=== PATIENT | female | born 1945 | race Caucasian/White ===

== ENCOUNTER 2024-06-30 13:53 | Outpatient (AMB) | payer MEDICARE, SELFPAY ==
--- NOTE | 2024-06-30 14:28 | A.SPINEOV_ITS ---
Vital Signs 06/30/24 14:29 Height 5 ft 5 in Weight 195 lb BMI 32.4 Intake Visit Reasons: low back pain Intake Note: Mrs. Williamson is here today c/o low back pain. 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 She tells me that about a year and a half ago she was working in her garden and as she was walking through it she tripped on 1 of the rocks and fell down. She was able to get up and continue on with her activity, but noticed shortly afterward that she started to develop some aching in her left buttock and her left anterior groin with activity. It would extend down her leg a little bit but primarily it was in her left buttock and her left anterior groin. The pain is aggravated with standing and walking and gets better if she sits down but does not completely go away. She tried to put up with it the best she could, doing things like ice, heat, changing positions. She even underwent 6 weeks of physical therapy where they did work on her hip with exercises using bands and strengthening of her glutes and quads but this did not help at all. She underwent an x-ray just showing some mild arthritis. She ultimately underwent an MRI of the lumbar spine showing spondylolisthesis at L4-5 with retrolisthesis at L3-4. I was seeing her for a separate issue and while we were discussing her 's lumbar spine, she mentioned to me about her own symptoms and her MRI results showing disc degeneration, and that is how she got to the office today. She tells me that about 2 or 3 months ago or so maybe longer the pain intensified quite a bit. That was in January or so when she got the x-ray. Since then, it has been a daily struggled just to get out of bed in the morning and get going. She has to sit on an ice pack for about half an hour before she can start moving around but really the pain never goes away. Even if she takes ibuprofen or Tylenol the pain has never gone. She does not have any tingling or numbness going down the legs. She does not have any centralized back pain. She has not seen a pain management center at this point, she has for the most part just been trying to live with it. No cauda equina symptoms. PMH: History of aortic stenosis but it is not clinically symptomatic at this point, she is followed by yearly echocardiograms, hypertension, uterine cancer treated with hysterectomy and oophorectomy, partial thyroidectomy for benign nodules. She does not need supplementation as she has enough retained function of her [place] thyroid. She has high cholesterol. Outside of that though she tells me she is reasonably healthy with no history of coronary disease, strokes, kidney disorders, liver disease, major abdominal surgery, blood clots, coagulopathies etc.. Social hx: She does not smoke she does drink a few glasses of wine a night, does not use any recreational drugs Medications: Metoprolol, lisinopril, hydrochlorothiazide, simvastatin Allergies: Sulfa Physical exam: She is awake alert oriented no acute distress, watched her walk in the hallways and she has a bit of a Trendelenburg gait, she is slightly externally rotates her left leg to accommodate for the discomfort. On passive range of motion testing she was very guarded would not let me internally or externally rotates her leg more than maybe about 20 degrees. It would reproduce the pain that she came here today to talk about. Contralateral ALEXIS testing did not generate any discomforts. Direct compression testing to the SI joints did generate some discomfort. Negative straight leg raise. She has full strength of bilateral lower extremities with normal sensation and normal reflexes. Just lying flat in the examining table, she had to reposition her knee and leg externally rotated just to be able to tolerate a supine position. Imaging review: There is a lumbar MRI done at [facility] showing multilevel degenerative disc disease at L2-3, L3-4 and L4-5. There is a slight retrolisthesis of L3 on L4, grade 1 spondy at L4-5. There is probably at worst moderate stenosis at these levels. There is an x-ray report of her hip showing mild degenerative changes and that was done in January. Impression: 78-year-old female presents with a posttraumatic syndrome of left buttock pain and left anterior groin pain which is aggravated with standing and walking, better when she sits but does not go away completely. She has a lot of tenderness with internal and external rotation of the left lower extremity, walks with an externally rotated left leg. She does have some positive SI joint findings in addition to the mechanical pain in the hip with rotation. At this point I am not convinced that the pain is coming from her low back as she has no centralized back pain and no true radiculopathy shooting down the leg with tingling and numbness. I am going to repeat her left hip x-ray as we know that avascular necrosis can occur and x-rays can be initially be normal. If that does not show anything meaningful, I am going to obtain hip MRI to rule out a torn labrum. Also, I will get a set of x-rays of her SI joint as that is a secondary possibility as the source of her pain. We could consider injections. Once the MRI of the MRI of the hip is done I will see her back in the office and we can re-evaluate. Thank you for allowing us to care for your patient. The total time spent with this visit with this patient was 45 minutes reviewing history, physical exam, lumbar imaging review, and implementation of treatment plan or further diagnostic testing Judd Lawler MD,PhD [facility] Orders: Orders XR lumbar spine 4V min Today M25.552 - Pain in left hip XR pelvis min 3V Today M25.552 - Pain in left hip XR hip LT 1V Today M25.552 - Pain in left hip MR hip LT wo con Today M25.552 - Pain in left hip Coding Level of Care Code New Pt Level 4 (26471) Diagnoses Left hip pain M25.552
[2024-06-30 14:29] VITALS: BMI 32.4
== END 2024-06-30 15:39 | disposition home or self-care (01) ==
PROVIDERS: PCP Internal Medicine; Visit Provider Physician Assistant
DX: M25.552 Pain in left hip (principal)
CPT/HCPCS: 99204

== ENCOUNTER 2024-06-30 13:53 | Outpatient (REF) | payer MEDICARE, SELFPAY ==
--- NOTE | ~2024-06-30 | XR_ITS ---
EXAMINATION: XR LUMBAR SPINE CLINICAL INFORMATION: Pain in LEFT hip. COMPARISON: None available. TECHNIQUE: 4 views of the lumbar spine inclusive of flexion and extension views. FINDINGS: Dextroscoliosis of the lumbar spine. Limited visualization due to overlying hardware from bra. Facet arthritis in the [id number]-fz-[id number] lumbar spine. Advanced multilevel lumbar spondylosis. A 0.9 cm rounded density projecting over the sacrum on the LEFT. Multilevel loss of disc space height most severe at L2-L3, L3-L4, and L5-S1. Grade 1 anterolisthesis of L4 and L5 with flexion and extension as well as rqxucpdq-lj-yngokt loss of disc space height. Grade 1 retrolisthesis of L3 on L4 with flexion and extension. Minimal grade 1 anterolisthesis of L1 on L2. Mild grade 1 anterolisthesis of L5 on S1. XR/XR lumbar spine 4V min IMPRESSION: 1. Advanced multilevel lumbar spondylosis. 2. A 0.9 cm rounded density overlying the sacrum on the LEFT, possibly a bony sclerotic lesion versus soft tissue calcification. Electronically signed by: Shivani Seay MD 07/07/2024 06:27 AM [facility]
--- NOTE | ~2024-06-30 | XR_ITS ---
EXAMINATION: XR HIP, LEFT CLINICAL INFORMATION: M25.552 - Pain in left hip COMPARISON: None available. TECHNIQUE: 1 view of the left hip. FINDINGS: No acute cortical disruption or malalignment. No lytic or blastic lesions. No gross joint space narrowing. Spondylosis at L4-5 and L5-S1. Sclerosis and the sacroiliac joints bilaterally. XR/XR hip LT 1V IMPRESSION: No acute fracture or dislocation, left hip. Electronically signed by: Jaswinder Villalpando MD 07/07/2024 07:17 AM [facility]
== END 2024-06-30 13:54 | disposition home or self-care (01) ==
LOC: HO.HOSX 13:53
PROVIDERS: PCP Internal Medicine; Visit Provider Physician Assistant
DX: M25.552 Pain in left hip (principal)
CPT/HCPCS: 72110; 73501; 99202

== ENCOUNTER → 2024-06-30 15:19 | Outpatient (BNV) | payer MEDICARE, SELFPAY | PROVIDERS: PCP Internal Medicine; Visit Provider Radiology Diagnostic Radiology | DX: M25.552 Pain in left hip (principal) | CPT/HCPCS: 73501 ==

== ENCOUNTER → 2024-07-18 13:47 | Outpatient (BNVA) | payer MEDICARE, SELFPAY | PROVIDERS: PCP Internal Medicine; Visit Provider Physician Assistant | DX: M25.552 Pain in left hip (principal) | CPT/HCPCS: 99212 ==

== ENCOUNTER 2024-09-03 10:21 | Outpatient (AMB) | payer MEDICARE, SELFPAY ==
--- NOTE | 2024-09-03 10:24 | MHC.OFFVIS ---
Vital Signs 09/03/24 10:29 Height 5 ft 5 in Weight 195 lb BMI 32.4 Intake Visit Reasons: QUALITY ASSURANCE INTERN-Left hip pain Intake Note: Alison is a 79 year old female who presents today as a new patient for a evaluation of her left hip pain. Patient reports ongoing pain for a couple months. Hx of a fall a couple years ago landing on her left hip. She mentions that her pain is through out her whole eft side of the hip, she is also noticing her pain goes up to her lower back and down to her left leg. Patient finds her pain worse when she is walking. She has tried and failed Advil, PT and Tylenol with no relief. IMPRESSION (xray 06/30/24): No acute fracture or dislocation, left hip. IMPRESSION (MRI 07/06/24) 1. No evidence of fracture or osteonecrosis 2. Moderate degenerative change in the left hip. 3. Attenuation of the anterior aspect of the left gluteus medius tendon suggesting partial tear with tendinopathy of its remaining posterior fibers. 4. Fluid signal adjacent both greater trochanter, which may reflect bursitis. Allergies Sulfa (Sulfonamide Antibiotics) Allergy (Unknown, Verified 09/03/24 10:27) Unknown HPI HPI QUALITY ASSURANCE INTERN-Left hip pain: Details: Ms. Williamson is a 79-year-old female who presents to the office today for evaluation of left hip, buttock and leg pain after she sustained a fall. The fall happened roughly a year and a half ago while she was working in her garden where she tripped on 1 of the rocks and fell landing on the left side. Ever since then she has had left buttock, anterior groin pain in pain radiating down the left lower extremity. She has done 6 weeks of physical therapy that worked on hip exercises but did not offer her any relief. She had x-rays in which she was told she had mild arthritis. Additionally, she did see neuro spine's Judd Lan PA-C and was diagnosed with spondylolisthesis at L4-L5 and retrolisthesis at L3-L4. The patient additionally had an MRI of the left hip and was significant for a partial tear of the glute medius. Therefore the patient was referred to Orthopedics for further evaluation of this. [facility] Social History (Updated 09/03/24 @ 10:28 by Clari Tian) Alcohol intake: current Alcohol intake frequency: holidays/special occasions only Patient Tobacco Use Status: Never used Tobacco Review of Systems Const All systems reviewed & are unremarkable except as noted in HPI and below Physical Exam Vital Signs: BMI result Body Mass Index 32.4 Const General: cooperative, healthy appearing and no acute distress Resp Effort & Inspection: normal respiratory effort and able to speak in complete sentences Cardio Rate: regular rate Peripheral pulses: Peripheral pulses 2+ throughout Skin Lesions: no lesions Rashes: no rashes Extrem Other: Left hip: Normal to inspection. No ecchymosis, erythema, or edema. Full hip ROM in all planes. Patient reports pain over the greater troch bursa with internal external rotation but denies groin pain. No tenderness to palpation over the greater trochanteric bursa. 4/5 strength with resisted hip flexion, knee extension, abduction, and abduction. Able to perform straight leg raise. NVI. Assessment & Plan Assessment & Plan (1) Osteoarthritis of left hip: Code(s): M16.12 - Unilateral primary osteoarthritis, left hip Category: Medical Plan Ms. Williamson is a 79-year-old female who presents to the office today for evaluation of left hip, buttock and leg pain after she sustained a fall. The fall happened roughly a year and a half ago while she was working in her garden where she tripped on 1 of the [employer] and fell landing on the left side. Ever since then she has had left buttock, anterior groin pain in pain radiating down the left lower extremity. She has done 6 weeks of physical therapy that worked on hip exercises but did not offer her any relief. She had x-rays in which she was told she had mild arthritis. Additionally, she did see neuro spine's Judd Lan PA-C and was diagnosed with spondylolisthesis at L4-L5 and retrolisthesis at L3-L4. The patient additionally had an MRI of the left hip and was significant for a partial tear of the glute medius. Therefore the patient was referred to Orthopedics for further evaluation of this. Of note, the patient is an established patient at [facility] and is going to be pending a cortisone injection in her low back. While the office today, we discussed the role of an intra-articular hip injection for diagnostic and therapeutic effects. I would like her to wait 4-6 weeks after receiving the cortisone injection in her lower back. I have placed an order for this while in the office today. She will follow up with me 4 weeks after her hip injection, sooner if needed. X-rays of the left hip which were obtained 06/30/2024 were reviewed by me, Danika Servin PA-C, revealed mild osteoarthritis. MRI of the left hip obtained on 07/06/2024 from [place]: Coding Level of Care Code New Pt Level 4 (97899) Diagnoses Osteoarthritis of left hip M16.12
[2024-09-03 10:29] VITALS: BMI 32.4
--- OUTSIDE RECORDS SUMMARY | 2024-09-03 11:53 | XMS_ITS | Continuity of Care Document ---
Author Organization [facility], [facility] [address]nd floor Address [address] [place] [address] Care Team Providers Care Veterinary Practice Manager Name Role Phone CHRISTIANA EARNEST Primary Care Provider [phone] Assessment No assessment recorded. Plan of Treatment Reminders Order Date Submit Date Provider Last Modified By Organization Details Last Modified Time Details Appointments NEW PATIENT 15 2024 09:15A M Philip Thomson PA-C Not available Not available Not available Lab None recorded . Referral None recorded . Procedures None recorded . Surgeries None recorded . Imaging None recorded . Medication Orders None recorded . Patient TargetsNo targets recorded. Patient InstructionsNo instructions recorded. Reason for Referral None Reported. Problems Name Problem SNOMED Code Status Onset Date Resolution Date Notes Provider Name and Address Organization Details Recorded Time Primary gonarthrosi s, bilateral [id number] Active 025 Aleyda Cage PA-C [address], [place], [address], [facility] 12:20:56 Problem Notes None recorded. Procedures Surgical History Date Name Laterality Status Provider Name and Address Organization Details Recorded Time 5 Gel-One Knee Injection Shravan completed Aleyda Cage PA-C [address], [place], [address], [facility] 08/28/2024 12:20:49 4 Knee Kenalog 40 1cc Injection, Bilateral completed Philip Thomson PA-C [address], [place], [address], [facility] 05/29/2024 12:51:46 4 Gel-One Knee Injection completed Philip Thomson PA-C [address], [place], [address], [facility] 02/27/2024 12:33:32 4 Knee Kenalog 40 1cc Injection, Bilateral completed Philip Thomson PA-C [address], [place], [address], [facility] 02/27/2024 12:33:42 4 Knee Kenalog 40 1cc Injection, Bilateral completed Philip Thomson PA-C [address], [place], [address], [facility] 11/21/2023 13:28:06 Imaging Results None recorded. Procedure Notes None recorded. Medical Equipment None Reported. Allergies Allergen ID Allergen Name Allergen Category Reaction Reaction Severity Criticality Documentation Date Start Date Code Code System Note Provider Name and Address Organization Details Recorded Time 80485 Substance with sulfonami de structure and antibacte rial mechanism of action (substanc e) medicatio n Not available Not available Not available 08/27/20232021 57517 8003 SNOMED Not Available [facility] 13:27:24 Medications Name Sig Start Date Stop Date Status Note LastModified by Organization Details LastModified Time lisinopril 20 mg-hydrochlo rothiazide 12.5 mg tablet TAKE 2 TABLETS DAILY active Not Available Not Available No t Available simvastatin 20 mg tablet TAKE 1 TABLET DAILY active Not Available Not Available No t Available metoprolol succinate ER 25 mg tablet,exten ded release 24 hr TAKE 1 TABLET DAILY active Not Available Not Available No t Available clobetasol 0.05 % scalp solution APPLY ONCE TO SCALP DAILY AT BEDTIME FOR 2-4 WEEKS active Not Available Not Available No t Available oxycodone 5 mg tablet TAKE 1 TABLET BY MOUTH EVERY 4 HOURS NEEDED FOR PAIN 08/28 completed Not Available Not Available Not Available Vitals Date Recorded Body height Body mass index (BMI) Body weight Provider Name and Address Organization Details Last Updated DateTime 08/28/2024 165.1 cm 31.6 kg/m2 77973.55 g Artur Guillermo [facility] 08/28/2024 12:54:40 Social History None recorded. Functional Status None recorded. Mental Status None recorded. Family History Nothing Reported. Medical History Condition Response Allergies/Hayfever N Coronary Artery Disease N Breathing or lung disorders N Anxiety/Depression N Emphysema N Nerve Disorders N Thyroid Problems N COPD N Pacemaker N Kidney/Bladder Problems N Anemia N Vascular Disease N Heart Trouble N Heart Attack ([place]) N Gastrointestinal Disease N Cholesterol Y Diabetes N Autoimmune disease N Inflammatory Joint disease N Bleeding Disorder N Orthotics N Seizures/Epilepsy N Arthritis Y Blood Clot N AIDS/HIV N Congestive Heart Failure (CHF) N Acid Reflux (GERD) N Cancer N Stroke N Asthma N Circulation Problems N Peripheral Vascular Disease N Sleep Apnea N Hepatitis N Heart Disease N Rheumatoid Arthritis N Pulmonary Embolism N Arrhythmia N Headaches N Fibromyalgia N Hypertension Y Osteoporosis N Gynecological HistoryNo gynecological history recorded. Obstetrics History GPAL:G 0 P 0 0 0 0 Past Encounters Encounter ID Performer Location Encounter Start Date Encounter Closed Date Diagnosis/Indication Diagnosis SNOMED-CT Code Diagnosis ICD10 Code Diagnosis Note [id number] [facility] [address] [place] [address] 08/28/2024 12:45:34 08/28/2024 13:12:36 Primary gonarthrosis, bilateral 471608544 M17.0 Health Concerns Section Related Observation LastModified by Organization Detai ls LastModified Time None Recorded Concern Status LastModified by Organization Details LastModified Time None Recorded Payers Encounter Date Sequence Insurance Name Policy Number Policy Sen Covered Member ID Sen Member ID Guarantor Name 08/28/2024 2 [place] [id number] Alison Williamson [id number] Alison Williamson 08/28/2024 1 [place] [employer] Alison Williamson [id number] Alison Williamson Notes Date Note Type Note Provider Name and Address Organization Details Recorded Time 08/28/2024 text/html I am seeing the patient today under the supervision of {{[place]* Inocencia Coley}} who was available but who did not see the patient. Subjective:Patient is here today for {{gelsyn 3 euflexxa hymovis G el One*}} injection #{{1* 2 3}} of {{right left bilater al*}} knees. Last cortisone injection 05-29-2024 for bilateral knees. Objective:Evaluation of {{right left bilater al*}} knees reveal no evidence of infection, no significant joint effusion, no warmth, or erythema. The injection sites are benign. Calves are supple and nontender. 5/5 strength. Some discomfort with range of motion Assessment:{{right l eft bilateral*}} knee osteoarthritis Plan:After meticulous sterile preparation, {{right left bilater al*}} knees injected with #{{1* 2 3}} {{gelsyn 3 euflexxa hymovis G el One*}}. Post-injection precautions were reviewed. I recommend ice, restriction of activities and follow up {{next week as needed*}}. She understands these can be repeated every 6 months. She would like to schedule an appointment in 3 months for repeat cortisone injections. Speech recognition special warfare operator software was used to create portions of this document. An attempt at proofreading has been made to minimize errors. Please call for corrections. Aleyda Cage PA-C [address] [facility] [address], [place], [address], [place] [facility] 08/28/2024 13:12:34 OBGyn Episode No OBEpisode recorded.
--- OUTSIDE RECORDS SUMMARY | 2024-09-03 11:53 | XMS_ITS ---
[facility] Address [address] [place] [address] Care Team Providers Care Bulldozer/Loader/Compactor/Scraper Name Role Phone Unruly Loja MD Primary Care Provider Unava ilable Black, Adelina Unavailable [phone] Allergies Allergen (clinical drug ingredient) Drug/Non Drug Allergy documented on EMR Reaction Allergy Type Onset Date Status Bactrim Unknown Drug Allergy Active Biaxin Unknown Drug Allergy Active erythromycin Erythromycin Unknown Drug Allergy A ctive azithromycin Azithromycin Unknown Drug Allergy A ctive Bee Sting Unknown Allergy Active Results Component Value Reference Range Notes X ray : Foot, left 3V Reviewed date:04/09/2024 03:03:53 PM Interpretation:See Examination above Performing Lab: Notes/Report: See Examination above X ray : Foot, right 3V Reviewed date:04/09/2024 03:04:02 PM Interpretation:See Examination above Performing Lab: Notes/Report: See Examination above REASON FOR VISIT Foot Pain Medications Medication SIG (Take, Route, Frequency, Duration) Notes Start Date End Date Status Enalapril Maleate 20 MG 1 tablet Orally Twice a day 11/20/2014 Not-Taking Vitamin C Not-Taking aspirin 81 mg daily once a day Active ASO Ankle/Foot Stablizing AFO As directe d Wear Daily for as needed 11/29/2016 Not-Taking Custom Orthotics as directed 11/21/2018 Active Simvastatin 20 MG Oral for 90 Active Vitamin D Active Metoprolol Succinate 25 MG 1 capsule Ora lly Once a day for 30 day(s) Active Multivitamin Active Custom Orthotics as directed 03/27/2017 Active hydroCHLOROthiazide 12.5 MG as directed Orally Once a day Active Lisinopril 20 MG as directed Orally Once a day Active Fish Oil Active Caltrate 600+D Plus Minerals Active Social History Tobacco Use: Social History Observation Description Date Details (start date - stop date) Former Smoker NA - NA Tobacco Use/Smoking Question Answer Notes Are you a: former smoker When did you start smoking? 1966 When did you stop smoking? 1975 Additional Findings: Tobacco Non-User Current no n-smoker Alcohol Screen Question Answer Notes Did you have a drink contain ing alcohol in the past year? Yes How often did you have a dri nk containing alcohol in the past year? 4 or more times a week (4 points) How often did you have 6 or more drinks on one occasion in the past year? Daily or almost daily (4 points) Points 8 Interpretation Positive Tobacco use other than smoking: Question Answer Notes Are you an other tobacco user? No Problems Problem Type SNOMED Code ICD Code Onset Dates Problem Status W/U Status Risk Notes Problem Plantar fascial fibromatosis (37903697) Plantar fascial fibromatosis (M72.2) Active confirmed Vital Signs Height 5 ft 5 in in 04/09/2024 Encounters Encounter Location Date Provider Diagnosis [facility] [address] 04/09/2024 Adelinajas Granado Primary osteoarthrit is, left ankle and foot M19.072 ; Pes planus of left foot M21.42 ; Hallux valgus (acquired), left foot M20.12 ; Pes planus of right foot M21.41 ; Primary osteoarthritis of right foot M19.071 ; Plantar fascial fibromatosis M72.2 ; Other myositis, right ankle and foot M60.871 ; Other bursitis, not elsewhere classified, right ankle and foot M71.571 ; Calcaneal spur, right foot M77.31 ; Metatarsalgia, left foot M77.42 ; Metatarsalgia of right foot M77.41 ; Pain in left foot M79.672 and Pain in right foot M79.671 Assessments Encounter Date Diagnosis (ICD Code) Assessment Notes Treatment Notes Treatment Clinical Notes Section Notes 04/09/2024 Primary osteoarthritis, left ankle and foot (ICD-10 - M19.072) 04/09/2024 Pes planus of left foot (ICD-10 - M21.42) 04/09/2024 Hallux valgus (acquired), left foot (ICD-10 - M20.12) 04/09/2024 Pes planus of right foot (ICD-10 - M21.41) 04/09/2024 Primary osteoarthritis of right foot (ICD-10 - M19.071) 04/09/2024 Plantar fascial fibromatosis (ICD-10 - M72.2) 04/09/2024 Other myositis, right ankle and foot (ICD-10 - M60.871) 04/09/2024 Other bursitis, not elsewhere classified, right ankle and foot (ICD-10 - M71.571) 04/09/2024 Calcaneal spur, right foot (ICD-10 - M77.31) 04/09/2024 Metatarsalgia, left foot (ICD-10 - M77.42) 04/09/2024 Metatarsalgia of right foot (ICD-10 - M77.41) 04/09/2024 Pain in left foot (ICD-10 - M79.672) 04/09/2024 Pain in right foot (ICD-10 - M79.671) Plan Of Treatment Next Appt Details Follow Up: prn, Reason: Progress Notes * JUAN PABLOJaelynAlison ADOB: [birth year] (78 yo F)Acc No.[id number]:04/09/2024 Progress Note Patient:?Alison Williamson Provider:?Adelina Granado DPM :1945???Age:78 Y???Sex:Female D ate:04/09/2024 [facility] Pcp:Unruly Loja MD Subjective: * Chief Complaints: * ??? Foot Pain * HPI: ???Foot Pain:?Nature:?aching, tenderness.?Location:?, Outside , Arch(es) , B/L.?Duration:?, 1 month.?Onset:?gradual, denies trauma.?Course:?, worse.?Aggravated:?standing , walking.?Treatments:?custom orthotics.?Severity/Quality:?mild.? * ROS:?General/Constitutional:?Nausea?denies.?Vomiting?denies.?Hunger Thirst?denies.?Loss appetite?denies.?Chills?denies.?Fatigue?denies.?Fever?denies.?Night Sweats?denies.?Unexplained weight loss?denies.?Ophthalmologic:?Blurred vision?denies.?Red eye?denies.?HEENTM:?Dentures?denies.?Dizziness?denies.?Glasses/contacts?denies.?Retinopathy?de nies.?Blurred/double vision?denies.?TMJ?denies.?Discharge/drainage?denies.?Implants?denies.?Hard of hearing denies.?Difficulty chewing/swallowing/speaking?denies.?Nose bleeds?denies.?Sore mouth?denies.?Swollen glands?denies.?Respiratory:?On Oxygen?denies.?Pneumonia/pleurisy?denies.?Bronchitis?denies.?Emphysema?denies.?C oughing?denies.?Cough blood?denies.?Shortness of breath?denies.?Wheezing?denies.?Cardiovascular:?Pacemaker?denies.?MVP?denies.?WPW?denies.?CHF?denies.?Heart attack?denies.?Septal defect?denies.?Rapid beat?denies.?Chest pain ?denies.?Atrial Fib.?denies.?Murmur/Palpitations?denies.?Gastrointestinal:?Hemorrhoids?denies.?Stomach/Abdominal pain?denies.?Dark blood stool?denies.?Irritable bowel ?denies.?Constipation?denies.?Diarrhea?denies.?Vomiting?denies.?Hematology:?Swelling?denies.?Bruising?denies.?Bleeding problem?denies.?Genitourinary:?Blood urine?denies.?Frequent/Painfu/urination/bladder control?denies.?Kidney stones?denies.?Infection (UTI)?denies.?Nephropathy?denies.?Musculoskeletal:?Hammertoes?denies.?Bunions?denies.?Scoliosis/kyphosis?denies.?Muscle cramps / walking?denies.?Generalized aches and pains?denies.?Weakness?denies.?Integ.:?[place]?denies.?Scars?denies.?Corns/calluses?denies.?Ingrown nails?denies.?Painful nails?denies.?Rashes?denies.?Neurologic:?Difficulty sleeping?denies.?Bipolar?denies.?Brain disorder?denies.?Balance trouble?denies.?Confusion?denies.?Fainting/blackouts?denies.?Headache?denies.?Tr emors?denies.? * Medical History:? * Surgical History:?uterine gannon rasta - cancer 06/2012hysterectomy 2012Thyroid * Hospitalization/Major Diagno stic Procedure:?No Hospitalization History. * Family History:?Mother: dece ased, arthritis, foot problems, high blood pressure.?Father: , diagnosed with Unspecified cerebral artery occlusion with cerebral infarction.?Spouse: alive.? * Social History:?Tobacco Use:?Tobacco Use/Smoking?Are you a:?former smoker ?When did you start smoking??1966 ?When did you stop smoking??1975 ?Additional Findings: Tobacco Non-User?Current non-smoker ?Tobacco use other than smoking?Are you an other tobacco user??No ???Drugs/Alcohol:?Drugs?Have you used drugs other than those for medical reasons in the past 12 months??No ?Alcohol Screen?Did you have a drink containing alcohol in the past year??Yes ?How often did you have a drink containing alcohol in the past year??4 or more times a week (4 points) ?How often did you have 6 or more drinks on one occasion in the past year??Daily or almost daily (4 points) ?Points?8 ?Interpretation?Positive ???Miscellaneous:?no Caffeine, tea decaf. ?no Children. ?no Exercise. ?Marital status: . ?Occupation: retired teacher. * Medications:?Takingaspirin 8 1 mg daily once a dayCaltrate 600+D Plus Minerals Fish Oil hydroCHLOROthiazide 12.5 MG Tablet as directed Orally Once a dayLisinopril 20 MG Tablet as directed Orally Once a dayMetoprolol Succinate 25 MG Capsule ER 24 Hour Sprinkle 1 capsule Orally Once a dayMultivitamin Simvastatin 20 MG Tablet Oral Vitamin D Custom Orthotics as directed Custom Orthotics as directed Taking aspirin 81 mg daily once a dayTaking Caltrate 600+D Plus Minerals Taking Fish Oil Taking hydroCHLOROthiazide 12.5 MG Tablet as directed Orally Once a dayTaking Lisinopril 20 MG Tablet as directed Orally Once a dayTaking Metoprolol Succinate 25 MG Capsule ER 24 Hour Sprinkle 1 capsule Orally Once a dayTaking Multivitamin Taking Simvastatin 20 MG Tablet Oral Taking Vitamin D Taking Custom Orthotics as directed Taking Custom Orthotics as directed Not-Taking/PRNASO Ankle/Foot Stablizing AFO As directed Wear DailyEnalapril Maleate 20 MG Tablet 1 tablet Orally Twice a dayVitamin C Medication List reviewed and reconciled with the patientNot-Taking/PRN ASO Ankle/Foot Stablizing AFO As directed Wear DailyNot-Taking/PRN Enalapril Maleate 20 MG Tablet 1 tablet Orally Twice a dayNot-Taking/PRN Vitamin C Medication List reviewed and reconciled with the patient * Allergies:?ErythromycinBiaxi nBactrimBee StingAzithromycinyes[Allergies Verified] Objective: * Vitals:?Ht: 5 ft 5 in, Shoe size:9-9.5. * Examination: ???General Examination: ?GENERAL APPEARANCE:?Reveals a pleasant, alert, well nourished, well developed, well hydrated individual, who demonstrates proper attention to hygene/body habitus, and is in no acute distress.?ORIENTED:?person, place, and time.?Vascular: ?DP PULSES(B):?2/4, B/L.?PT PULSES(B):?2/4, B/L.?CAPILLARY FILL TIME:?3 secs. per digit, B/L .?TROPHIC CONDITION-TEXTURE/ELASTICITY/TURGOR/HAIR GROWTH(B):?normal, B/L .?TEMPERTURE GRADIENT(C):?warm to cool, proximal to distal, B/L .?PIGMENTATION:?normal, B/L .?EDEMA(C):?absent, B/L .?Orthopedic: ?MUSCLE STRENGTH:?5/5 all groups in a symmetrical fashion , B/L.?GAIT ABNORMALITY:? Pronated, abducted.?FOOT MORPHOLOGY:? B/L, Pes Planus structure , Prominent, non painful 2nd Met-Cunieform joint without inflammation L>R.?BUNION:? Medially prominent 1st MPJ, Lateral tracking 1st MPJ nonreducable, Limited 1st MPJ Dorsal ROM.?TAILOR'S BUNION:?Enlarged, painful, prominent, inflamed 5th Metatarsal Base , B/L.?DIGITAL DEFORMITIES:? Digital contracture, PIPJ, 2-5 B/L, incompl- reducable to push-up test, no over, nor underlapping.?MPJ PATHOLOGY:?Pain, swelling, and inflammation to dorsal MPJ(s), 2nd, LEFT, MPJ pain with ROM, 2nd, LEFT.?FOOTWEAR:?Pt is in Subtalar neutral however complains of too much pressure in the arch.?Neurological: ?SENSORY:?Neurological exam reveals intact sensorium, pain sensation normal, vibration sensation intact, pinprick sensation is normal in the lower extremities, Pt denies, anesthesia, burning, paresthesia, tingling, B/L.?TINEL'S COMPRESSION:?Negative tarsal tunnel, bran pedis, and medial calcaneal nerves.?Heel Pain: ?INSPECTION REVEALS:?Pain on Palpation to Plantar Fascia med. and central bands, intrinsic musc., infra-calcaneal bursa, and med calc tubercle , B/L , No pain: posterior/superior heel, achilles bursa/tendon, sinus tarsi, peroneals, or with lateral heel compression; no limited STJ ROM, calor, or ecchymosis , B/L.?X-Rays - IMAGING REPORT: ?Clinical Indication(s):?Evaluate for Fracture , Evaluate Biomechanical Deformity.?Views:?3 views of Foot , B/L , AP , LAT , MO.?Findings:?mild generalized decrease in bone density , dorsal degenerative changes of the tarsal joints , hypertrophy of 5th MT Base/Styloid process.?Foot structure:?reveals excess pronation with , anterior break in cyme line , increased talar declination , decreased calcaneal inclination.?Digits:?show asymmetrical joint space narrowing at the PIPJ consistent with clinical finding of hammertoe deformity.?HAV:?increased First Intermetatarsal angle and Hallux Abductus angle consistent with Bunion deformity noted.?Fracture:?Negative fractures identified.? Assessment: * Assessment: 1.?Primary osteoarthritis, l eft ankle and foot - M19.072 (Primary)?2.?Pes planus of left foot - M21.42?3.?Hallux valgus (acquired), left foot - M20.12?4.?Pes planus of right foot - M21.41?5.?Primary osteoarthritis of right foot - M19.071?6.?Plantar fascial fibromatosis - M72.2?7.?Other myositis, right ankle and foot - M60.871?8.?Other bursitis, not elsewhere classified, right ankle and foot - M71.571?9.?Calcaneal spur, right foot - M77.31?10.?Metatarsalgia, left foot - M77.42?11.?Metatarsalgia of right foot - M77.41?12.?Pain in left foot - M79.672?13.?Pain in right foot - M79.671? Plan: * Treatment: 2.?Pain in right foot?Imaging: X ray : Foot, right 3V?See Examination above * Procedure Codes:?05737 X-RAY EXAM OF LEFT FOOT 3V, Modifiers: 26 , CW14303 X-RAY EXAM OF RIGHT FOOT 3V, Modifiers: 26 , RT * Preventive Medicine:? ??Counseling:?Discussion:?-14: Office or other outpatient visit for the evaluation and management of an established patient, which required a medically appropriate history and/or examination and MODERATE level of DECISION MAKING for: 1 OR MORE CHRONIC PROBLEM(S) THATS WORSENING, 2 STABLE CHRONIC PROBLEMS, A NEWLY DIAGNOSED PROBLEM WITH UNCERTAIN PROGNOSIS, AN ACUTE COMPLICATED INJURY WITH MULTIPLE TREATMENT OPTIONS, OR AN ACUTE PROBLEM WITH ACCOMPANYING SYSTEMIC SYMPTOMS, THAT POSE(S) A MODERATE RISK OF MORBIDITY. THIS CONDITION MAY ALSO INCLUDE RX DRUG MANAGEMENT, OR A DECISON FOR MINOR SURGERY. The visit on the day of the encounter encompassed interpreting the data and educating the patient as to the nature of their condition, treatment options available according to their individual PMH, meds, allergies, and overall health/living conditions, as well as any potential risks or complications that may occur from a failure to adhere to, and participate in, the recommended course of therapy. The discussion included a complete verbal, and/or written explanation of the examination results, any x-rays taken, the proposed diagnosis, and outline of the treatment plan. A schedule for future care needs was also explained. The patient verbalized an understanding of the instructions at this time and agreed to be an active participant in their treatment. If the patient should think of any questions or concerns after the visit, I have encouraged the patient to call the office.?BioMech.:?I discussed the Pts foot biomechanics with them and how it relates to their problem, Discussed and reviewed the X-rays with the patient. We discussed how the findings relate to the patients symptoms/complaints. Answered any and all questions. Lateral flare is added to both custom orthotics. Pt ambulated with a relief of pain.?Heel pain:?FASCIITIS: I explained to the patient the possible etiologies of Plantar Fasciitis including foot type/shoegear/activity level/exercise routine and the risks/benefits of all the different treatment options for heel pain including: No treatment at all, Rest, Ice, NSAIDs(only if well tolerated after meals), New/supportive Shoegear, Strappings and Tapings, Stretching exercises, Deep Tissue Massage, Heel cups/cushions, Arch support/shoe inserts, Custom orthoses, Topical analgesics including Aspercream/Voltaren gel, Night splint AFO for am stiffness, Cortisone injection therapy, Cast boot with crutches/cane/or walker for assisted ambulation, Physical Therapy, EPAT/ESWT, Interfil injection therapy, as well as surgical [place]/Endoscopic Fasciitomy surgical procedures if needed. Recommendations were made to limit barefoot walking, eliminate wearing nonsupportive shoegear (i.e. flip-flops or sandals, or a shoe with an easily bendable, foldable, or twistable sole) and wear shoegear with a good solid sole, a supportive arch, and plenty of room for an insert/orthotic if necessary. If wearing sandals was required by the patient, we recommended orthopedic sandals such as Orthoheel or Birkenstock even while in the home. If the patient wore heels in the past, we recommended they continue, but eliminate the use of flats. The advantages and disadvantages of each option were discussed and the patients questions re: types of shoegear, custom vs prefabricated inserts, activity level, PO vs Topical medications (and their respective potential complications/drug interactions/side effects), and consistency in home treatment regimens for optimal success were answered to their satisfaction. Literature detailing plantar fasciitis and the various treatment options were dispensed and reviewed, Stretching exercises for the patients injury/diagnosis were discussed and demonstrated, Handouts were also given.?Metatarsalgea:?I explained to the patient the possible etiologies of their Metatarsalgea Foot pain, including foot type/shoegear/activity level/exercise routine and the risks/benefits of all the different treatment options for pain including: No treatment at all, Rest, Ice, NSAIDs(only if well tolerated after meals), New/supportive Shoegear, Strappings and Tapings, Foot/Ankle AFO Bracing, Stretching exercises, Deep Tissue Massage, Arch support/shoe inserts, Custom orthoses, Topical analgesics including Aspercream/Voltaren gel, Physical Therapy, Cortisone injection therapy, EPAT/ESWT. Advantages and disadvantages of each option were discussed and the patients questions re: shoegear, custom vs prefabricated inserts, activity level, PO vs Topical medications (and their respective potential complications/drug interactions/side effects), and consistency in home treatment regimens for optimal success were answered to their verbally confirmed satisfaction.? * Follow Up:?prn * Images: * Sign off status: Completed true * Provider:?Adelina Granado DPM Date:?2023 Generated for Eben saleem/Julianna/Ashlie on:?09/03/2024 11:52 AM EDT History and Physical Notes * HPI (History of Present Illness) Category Sub-Category Detail Notes Category Not es Foot Pain Nature: aching, tenderness Location: , Outside , Arch(es) , B/L Duration: , 1 month Onset: gradual, denies trau ma Course: , worse Aggravated: standing , walking Treatments: custom orthotics Severity/Quality: mild Examination Category Sub-Category Detail Notes Category Not es Heel Pain INSPECTION REVEALS: Pain on Palp ation to Plantar Fascia med. and central bands, intrinsic musc., infra-calcaneal bursa, and med calc tubercle , B/L , No pain: posterior/superior heel, achilles bursa/tendon, sinus tarsi, peroneals, or with lateral heel compression; no limited STJ ROM, calor, or ecchymosis , B/L Neurological SENSORY: Neurological exa m reveals intact sensorium, pain sensation normal, vibration sensation intact, pinprick sensation is normal in the lower extremities, Pt denies, anesthesia, burning, paresthesia, tingling, B/L TINEL'S COMPRESSION: Negative tarsal loli shabnam, bran pedis, and medial calcaneal nerves Orthopedic GAIT ABNORMALITY: Pronated, abducted FOOT MORPHOLOGY: B/L, Pes Planus stru cture , Prominent, non painful 2nd Met- Cunieform joint without inflammation L>R BUNION: Medially prominent 1 st MPJ, Lateral tracking 1st MPJ nonreducable, Limited 1st MPJ Dorsal ROM FOOTWEAR: Pt is in Subtalar ne utral however complains of too much pressure in the arch DIGITAL DEFORMITIES: Digital contracture , PIPJ, 2-5 B/L, incompl-reducable to push-up test, no over, nor underlapping MPJ PATHOLOGY: Pain, swelling, and inflammation to dorsal MPJ(s), 2nd, LEFT, MPJ pain with ROM, 2nd, LEFT TAILOR'S BUNION: Enlarged, painful, p rominent, inflamed 5th Metatarsal Base , B/L MUSCLE STRENGTH: 5/5 all groups in a symmetrical fashion , B/L General Examination GENERAL APPEARANCE: Reveals a pleasant, alert, well nourished, well developed, well hydrated individual, who demonstrates proper attention to hygene/body habitus, and is in no acute distress ORIENTED: person, place, and t jed Vascular DP PULSES (B): 2/4, B/L PT PULSES (B): 2/4, B/L CAPILLARY FILL TIME: 3 secs. per digit, B/L TEMPERTURE GRADIENT (C): warm to cool, p roximal to distal, B/L TROPHIC CONDITION-TEXTURE/ELASTICITY/TURGOR/HAIR GROWTH (B): normal, B/L EDEMA (C): absent, B/L PIGMENTATION: normal, B/L X-Rays - IMAGING REPORT Findings: mild gen eralized decrease in bone density , dorsal degenerative changes of the tarsal joints , hypertrophy of 5th MT Base/Styloid process Fracture: Negative fractures i dentified Digits: show asymmetrical reymundo int space narrowing at the PIPJ consistent with clinical finding of hammertoe deformity Foot structure: reveals excess prona tion with , anterior break in cyme line , increased talar declination , decreased calcaneal inclination HAV: increased First Inte rmetatarsal angle and Hallux Abductus angle consistent with Bunion deformity noted Views: 3 views of Foot , B/ L , AP , LAT , MO Clinical Indication(s): Evaluate for Fra cture , Evaluate Biomechanical Deformity
--- OUTSIDE RECORDS SUMMARY | 2024-09-03 11:53 | XMS_ITS | Data Portability ---
Author Organization [facility], [facility] Address [address] [place] [address] Care Team Providers Care Continuous Wave Operator Name Role Phone EARNEST VILLEDA Primary Care Provider Assessment No assessment recorded. Plan of Treatment Reminders Order Date Submit Date Provider Last Modified By Organization Details Last Modified Time Details Appointments NEW PATIENT 15 2024 09:15A Abel Thomson PA-C Not available Not available Not available Lab None recorded . Referral None recorded . Procedures None recorded . Surgeries None recorded . Imaging None recorded . Medication Orders None recorded . Patient TargetsNo targets recorded. Patient InstructionsNo instructions recorded. Reason for Referral None Reported. Results Created Date Observation Date Name Description Value Unit Range Abnormal Flag Note LastModifiedBy Organization Detail LastModifiedTime 02/23/20 24 06/29/2022 georgesi ng/tracy winston tic resul t No observ ation record ed. [email or web address] Not Available 01/25 05:24:27 Result Notes None recorded. Problems Name Problem SNOMED Code Status Onset Date Resolution Date Notes Provider Name and Address Organization Details Recorded Time Primary gonarthrosi s, bilateral 479177302 Active 025 Easton Cage PA-C [address], [place], [address], [facility] 12:20:56 Problem Notes None recorded. Procedures Surgical History Date Name Laterality Status Provider Name and Address Organization Details Recorded Time Gel-One Knee Injection Shravan completed Easton Cage PA-C [address], [place], [address], [facility] 08/28/2024 12:20:49 4 Knee Kenalog 40 1cc Injection, Bilateral completed Philip Thomson, PA-C [address], [place], [address], [facility] 05/29/2024 12:51:46 4 Gel-One Knee Injection completed Philip Thomson, PA-C [address], [place], [address], [facility] 02/27/2024 12:33:32 4 Knee Kenalog 40 1cc Injection, Bilateral completed Philip Thomson, PA-C [address], [place], [address], [facility] 02/27/2024 12:33:42 4 Knee Kenalog 40 1cc Injection, Bilateral completed Philip Thomson, PA-C [address], [place], [address], [facility] 11/21/2023 13:28:06 Imaging Results Imaging Date Name Status LastModified by Organiz ation Details LastModified Time 06/29/2022 imaging/diag nostic result completed [email or web address] Information not available 02/23/2024 05:24:27 Procedure Notes None recorded. Medical Equipment None Reported. Allergies Allergen ID Allergen Name Allergen Category Reaction Reaction Severity Criticality Documentation Date Start Date Code Code System Note Provider Name and Address Organization Details Recorded Time 61919 Substance with sulfonami de structure and antibacte rial mechanism of action (substanc e) medicatio n Not available Not available Not available 08/27/20232021 59094 8003 SNOMED Not Available [facility] 13:27:24 Medications [...] and Address Organization Details Last Updated DateTime 11/21/2023 165.1 cm 31.6 kg/m2 93165.55 g EASTON RUSLAN [facility] 11/21/2023 13:32:53 Date Recorded Body height Body mass index (BMI) Body weight Provider Name and Address Organization Details Last Updated DateTime 02/27/2024 165.1 cm 31.6 kg/m2 98481.55 g SERGIO OSWALD [facility] 02/27/2024 13:52:43 Date Recorded Body height Provider Name an d Address Organization Details Last Updated DateTime 05/29/2024 165.1 cm CUBA NORTON [facility] 05/29/2024 14:56:37 Date Recorded Body height Body mass index (BMI) Body weight Provider Name and Address Organization Details Last Updated DateTime 08/28/2024 165.1 cm 31.6 kg/m2 98240.55 g Artur Guillermo [facility] 08/28/2024 12:54:40 Social History None recorded. Functional Status None recorded. Mental Status None recorded. Family History Nothing Reported. Medical History Condition Response Allergies/Hayfever N Coronary Artery Disease N Breathing or lung disorders N Anxiety/Depression N Emphysema N Nerve Disorders N Thyroid Problems N COPD N Pacemaker N Kidney/Bladder Problems N Anemia N Vascular Disease N Heart Trouble N Heart Attack ([place]) N Gastrointestinal Disease N Cholesterol Y Diabetes [...] SNOMED-CT Code Diagnosis ICD10 Code Diagnosis Note [id number] Philip Thomson PA-C [place] [address] [place] [address] 11/21/2023 13:20:44 12/20/2023 10:01:03 Osteoarthritis of right knee joint 6213432892 50226 M17.11 Osteoarthr itis of left knee joint 5147218193 63839 M17.12 [id number] Philip Thomson PA-C [place] [address] [place] [address] 02/27/2024 13:16:29 03/19/2024 12:04:40 Osteoarthritis of right knee joint 3305217127 59387 M17.11 Osteoarthr itis of left knee joint 4626198229 54151 M17.12 [id number] Philip Thomson PA-C [place] [address] [place] [address] 05/29/2024 14:47:27 06/24/2024 08:21:08 Osteoarthritis of right knee joint 7334592525 17180 M17.11 Osteoarthr itis of left knee joint 5985356535 03576 M17.12 [id number] Easton Cage PA-C [facility] [address] [place] [address] 08/28/2024 12:45:34 08/28/2024 13:12:36 Primary gonarthrosis, bilateral 961014233 M17.0 Health Concerns Section Related Observation LastModified by Organization Detai ls LastModified Time None Recorded Concern Status LastModified by Organization Details LastModified Time None Recorded Advance Directives Directive None Recorded Payers Encounter Date Sequence Insurance Name Policy Number Policy Sen Covered Member ID Sen Member ID Guarantor Name 11/21/2023 2 [place] [id number] Alison Williamson [id number] Alison Williamson 11/21/2023 1 [place] [employer] Alison Williamson [id number] Alison Williamson 02/27/2024 2 [place] [id number] Alison Williamson [id number] Alison Williamson 02/27/2024 1 [place] [employer] Alison Williamson [id number] Alison Williamson 05/29/2024 2 [place] [id number] Alison Williamson [id number] Alison Williamson 05/29/2024 1 [place] [employer] Alison Williamson [id number] Alison Williamson 08/28/2024 2 [place] [id number] Alison Williamson [id number] Alison Williamson 08/28/2024 1 [place] [facility] Alison Williamson [id number] Alison Williamson Notes Date Note Type Note Provider Name and Address Organization Details Recorded Time 11/21/2023 text/html I am seeing the patient today under the supervision of {{Vianca* Nanda }} who was available but who did not see the patient. Chief Complaint The patient presents today for recheck of bilateral knee osteoarthritis. Is known to have knee arthritis treated conservatively to this point with {{1 2 3*}} months relief of symptoms. Presents today for recheck secondary to increased knee pain. History of Present Illness ? Allergy list reviewed ? Medication list reviewed Past Medical/Surgical History Reviewed today, otherwise unchanged per intake sheet. Physical Findings General Appearance: ? ? ? Well developed. ? ? ? In no acute distress. Musculoskeletal System: Knee: General/bilateral: ? ? ? No laxity of the knee. Right Knee: ? Medial aspect was tender on palpation. ? ? ? No erythema. ? ? ? No warmth. Left Knee: ? Medial aspect was tender on palpation. ? ? ? No erythema. ? ? ? No warmth. Musculoskeletal Scales: General/bilateral: ? Mild effusion noted. Neurological: ? ? ? Oriented to time, place, and person. Gait And Stance: ? ? ? Normal. Psychiatric: ? ? ? Mood was appropriate to the affect. Left knee 0-120 degrees of flexion with discomfort. Right knee 0-120 degrees of flexion with discomfort. Assessment ? Osteoarthritis of knee -bilateral knees Plan More than 50% of todays visit was spent on direct patient counseling regarding their knee condition and treatment options both operative with knee arthroplasty and non-operative, including oral medications and injection therapy. After discussion, my clinical decision was to go forth with an intra-articular cortisone injection. After explaining risks and benefits, under meticulous aseptic technique, each knee was injected with, 1cc of Kenalog 40mgs and 4 cc of Marcaine 1/4%. They tolerated the procedures well. Post injection precautions reviewed. Follow up with us in 3 months for further discussion of total knee replacement surgery versus continued conservative treatment. Philip Thomson PA-C [address] [facility] [address], [place], [address], [place] - [place] [facility] 11/21/2023 13:52:38 02/27/2024 text/html I am seeing the patient today under the supervision of {{Vianca* Nanda }} who was available but who did not see the patient. Chief Complaint The patient presents today for recheck of bilateral knee osteoarthritis. Is known to have knee arthritis treated conservatively to this point with {{1 2 3*}} months relief of symptoms. Presents today for recheck secondary to increased knee pain. History of Present Illness ? Allergy list reviewed ? Medication list reviewed Past Medical/Surgical History Reviewed today, otherwise unchanged per intake sheet. Physical Findings General Appearance: ? ? ? Well developed. ? ? ? In no acute distress. Musculoskeletal System: Knee: General/bilateral: ? ? ? No laxity of the knee. Right Knee: ? Medial aspect was tender on palpation. ? ? ? No erythema. ? ? ? No warmth. Left Knee: ? Medial aspect was tender on palpation. ? ? ? No erythema. ? ? ? No warmth. Musculoskeletal Scales: General/bilateral: ? Mild effusion noted. Neurological: ? ? ? Oriented to time, place, and person. Gait And Stance: ? ? ? Normal. Psychiatric: ? ? ? Mood was appropriate to the affect. Left knee 0-120 degrees of flexion with discomfort. Right knee 0-120 degrees of flexion with discomfort. Assessment ? Osteoarthritis of knee -bilateral knees Plan More than 50% of todays visit was spent on direct patient counseling regarding their knee condition and treatment options both operative with knee arthroplasty and non-operative, including oral medications and injection therapy. After discussion, my clinical decision was to go forth with an intra-articular cortisone injection. After explaining risks and benefits, under meticulous aseptic technique, each knee was injected with 1 vial of Nichol gel 1 then, 1cc of Kenalog 40mgs and 4 cc of Marcaine 1/4%. They tolerated the procedures well. Post injection precautions reviewed. Follow up with us in 3 months for further discussion of total knee replacement surgery versus continued conservative treatment. Philip Thomson PA-C [address] [facility] [address], [place], [address], [place] - [facility] 02/27/2024 13:56:45 05/29/2024 text/html I am seeing the patient today under the supervision of {{Vianca* Nanda }} who was available but who did not see the patient. Chief Complaint The patient presents today for recheck of bilateral knee osteoarthritis. Is known to have knee arthritis treated conservatively to this point with {{1 2 3*}} months relief of symptoms. Presents today for recheck secondary to increased knee pain. History of Present Illness ? Allergy list reviewed ? Medication list reviewed Past Medical/Surgical History Reviewed today, otherwise unchanged per intake sheet. Physical Findings General Appearance: ? ? ? Well developed. ? ? ? In no acute distress. Musculoskeletal System: Knee: General/bilateral: ? ? ? No laxity of the knee. Right Knee: ? Medial aspect was tender on palpation. ? ? ? No erythema. ? ? ? No warmth. Left Knee: ? Medial aspect was tender on palpation. ? ? ? No erythema. ? ? ? No warmth. Musculoskeletal Scales: General/bilateral: ? Mild effusion noted. Neurological: ? ? ? Oriented to time, place, and person. Gait And Stance: ? ? ? Normal. Psychiatric: ? ? ? Mood was appropriate to the affect. Left knee 0-120 degrees of flexion with discomfort. Right knee 0-120 degrees of flexion with discomfort. Assessment ? Osteoarthritis of knee -bilateral knees Plan More than 50% of todays visit was spent on direct patient counseling regarding their knee condition and treatment options both operative with knee arthroplasty and non-operative, including oral medications and injection therapy. After discussion, my clinical decision was to go forth with an intra-articular cortisone injection. After explaining risks and benefits, under meticulous aseptic technique, each knee was injected with, 1cc of Kenalog 40mgs and 4 cc of Marcaine 1/4%. They tolerated the procedures well. Post injection precautions reviewed. Follow up with us in 3 months for further discussion of total knee replacement surgery versus continued conservative treatment. Philip Thomson PA-C [address], [place], [address], [facility] 05/29/2024 15:36:13 08/28/2024 text/html I am seeing the patient today under the supervision of {{Renard Coley}} who was available but who did [...] months for repeat cortisone injections. Speech recognition copy lathe operator software was used to create portions of this document. An attempt at proofreading has been made to minimize errors. Please call for corrections. Easton Cage PA-C [address], [place], [address], [facility] 08/28/2024 13:12:34 OBGyn Episode No OBEpisode recorded.
--- OUTSIDE RECORDS SUMMARY | 2024-09-03 11:53 | XMS_ITS | Patient Health Record ---
Author Organization [facility] Address [address] [place] [address] Care Team Providers Care Laboratory Asst Name Role Phone Unruly Loja MD Primary Care Provider Kerrie del toro Loy Adelina Unavailable [phone] Allergies Allergen (clinical drug ingredient) Drug/Non Drug [...] above Performing Lab: Notes/Report: See Examination above Reason For Referral No Information Medications Medication SIG (Take, Route, Frequency, Duration) Notes Start Date End Date Status aspirin 81 mg daily once a day Active ASO Ankle/Foot Stablizing AFO As directe d Wear Daily for as needed 11/29/2016 Not-Taking Caltrate 600+D Plus Minerals Active Custom Orthotics as directed 03/27/2017 Active Custom Orthotics as directed 11/21/2018 Active Simvastatin 20 MG Oral for 90 Active Vitamin D Active Metoprolol Succinate 25 MG 1 capsule Ora lly Once a day for 30 day(s) Active Multivitamin Active hydroCHLOROthiazide 12.5 MG as directed Orally Once a day Active Lisinopril 20 MG as directed Orally Once a day Active Enalapril Maleate 20 MG 1 tablet Orally Twice a day 11/20/2014 Not-Taking Fish Oil Active Vitamin C Not-Taking Social History Tobacco Use: Social History Observation Description Date Details (start date - stop date) Former Smoker NA - NA Tobacco Use/Smoking Question Answer Notes Are you a: former smoker When did you start smoking? 1966 When did you stop smoking? 1974 Additional Findings: Tobacco Non-User Current no n-smoker [...] Problem Status W/U Status Risk Notes Problem Acquired hallux valgus (44810626) Hallux valgus (acquired), left foot (M20.12) Active confirmed Problem Plantar fascial fibromatosis (67486563) Plantar fascial fibromatosis (M72.2) Active confirmed Problem Localized, primary osteoarthritis of the ankle and/or foot (969636078) Primary osteoarthritis, left ankle and foot (M19.072) Active confirmed Problem 227340254 Hammer toe of right foot (M20.41) Active confirmed Problem 724873218 Hammer toe of left foot (M20.42) Active confirmed Problem Localized, primary osteoarthritis of the ankle and/or foot (033001618) 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) Active confirmed Problem Acquired deformity of left foot (9867103823600800 4) PlantarFlexion of metatarsal of left foot (M21.6X2) Active confirmed Vital Signs Height 5 ft 5 in in 04/09/2024 Encounters Encounter Location Date Provider Diagnosis [facility] [address] 04/09/2024 Adelina Black Primary osteoarthrit is, left ankle and foot [...] foot (ICD-10 - M79.671) Plan Of Treatment Pending Test Test Name Order Date [id number] Plate 04/17/2017, [id number]/INJECT, JOINT/BURSA 1 08/07/2016, [id number]/INJECT, JOINT/BURSA 1 07/15/202178490,[id number] TENDON SHEATH/LIGAMENT 0 11/21/2018 Insurance Providers Payer Name Payer Address Payer Phone Subscriber Number Group Number Insured Name Patient Relationship to Insured Coverage Start Date Coverage End Date Medicare National [facility] [employer] [address] [place] [address] [id number] Alison Williamson Self - patient is the insured [employer] [address] [place] [address] [id number] Alison Williamson Self - patient is the insured Medical (General) History Medical History History ICD Code Back,Hip,and Knee pain Cholesterol Cancer High blood pressure Chicken pox Measles Arthritis Psoriasis/eczema Surgical History Surgery Date(Month/Year) uterine sugery - cancer 06/2012 hysterectomy 2012 Thyroid
== END 2024-09-03 11:04 | disposition home or self-care (01) ==
LOC: HO.HOS 10:22
PROVIDERS: PCP Internal Medicine; Visit Provider Physician Assistant
DX: M16.12 Unilateral primary osteoarthritis, left hip (principal)
CPT/HCPCS: 99204

== ENCOUNTER → 2024-09-03 10:21 | Outpatient (BNVA) | payer MEDICARE, SELFPAY | PROVIDERS: PCP Internal Medicine; Visit Provider Physician Assistant | DX: M16.12 Unilateral primary osteoarthritis, left hip (principal) | CPT/HCPCS: 99202 ==